=== PATIENT | female | born 1955 | race Caucasian/White ===

== ENCOUNTER 2016-11-02 05:40 | Day surgery (SDC) | payer SELFPAY ==
[~2016-11-02] VITALS: Ht 160 cm; Wt 81.4 kg
--- NOTE | ~2016-11-02 | OR ---
PATIENT'S NAME: HUE BENITES [facility] AGE: 61 Y [address] ROOM: [place] [address] LOCATION: G3 ADMIT DATE: 11/02/2016 OR/Procedure Report DISCHARGE DATE: FAMILY PHYSICIAN: ANY MOULTON PA-C ATTENDING PHYSICIAN: DAKOTA RENDON SURGEON: Dakota Rendon MD HUMAN RESOURCE ADVISOR: DATE OF PROCEDURE: 11/02/2016 ANESTHESIOLOGIST: Javier Clements MD ANESTHESIA: General. COMPLICATIONS: None. ESTIMATED BLOOD LOSS: Minimal. PREOPERATIVE DIAGNOSES: 1. C4-5 spinal stenosis with cervical radiculopathy. 2. C5-6 severe spinal stenosis with radiculopathy. 3. C6-7 severe spinal stenosis with radiculopathy. 4. Bilateral C5, bilateral C6, and bilateral C7 foraminal stenosis with radiculopathy. POSTOPERATIVE DIAGNOSES: 1. C4-5 spinal stenosis with cervical radiculopathy. 2. C5-6 severe spinal stenosis with radiculopathy. 3. C6-7 severe spinal stenosis with radiculopathy. 4. Bilateral C5, bilateral C6, and bilateral C7 foraminal stenosis with radiculopathy. PROCEDURES PERFORMED: 1. C4-5 anterior cervical diskectomy and decompression of the spinal cord. 2. C5-6 anterior cervical diskectomy and decompression of the spinal cord. 3. C6-7 anterior cervical diskectomy and decompression of the spinal cord. 4. Bilateral C5, bilateral C6, and bilateral C7 foraminotomy and decompression for stenosis. 5. C4-5 anterior arthrodesis. 6. C5-6 anterior arthrodesis. 7. C6-7 anterior arthrodesis. 8. Insertion of structural cortical cancellous allograft spacers into C4-5, C5-6, and C6-7 disk spaces. 9. Insertion of 2 anterior cervical titanium plates across C4-5, C5-7 (system used is cloud.[employer]tr[employer] [place] Elite System). 10. Intraoperative fluoroscopy. PATIENT'S NAME: HUE BENITES [facility] AGE: 61 Y [address] ROOM: [place] [address] LOCATION: [facility] ADMIT DATE: 11/02/2016 OR/Procedure Report DISCHARGE DATE: FAMILY PHYSICIAN: ANY MOULTON PA-C ATTENDING PHYSICIAN: DAKOTA RENDON CLINICAL HISTORY: The above patient was diagnosed clinically and on imaging to have the above-mentioned diagnoses. I recommended the above-mentioned surgeries to try to relieve her symptoms and improve her functioning. The patient was brought in for the operation. DESCRIPTION OF PROCEDURE: The patient was seen in the preoperative care unit, and the correct site was marked. Then, she was transferred to the main operating theater, was given general anesthetic, and underwent endotracheal intubation without complications. Preoperative antibiotics and steroids were given. Calf compressors and Ventura catheter were used throughout the procedure. The patient was positioned supine on the table, and all her joints and bony prominences were securely padded. The patient's neck was positioned on a gel-padded beanbag in mild extension. Shoulders were taped away with tape. I then marked a vertical incision on the right side of the neck starting at C4-5 level down to C6-7 level. Surgical site was prepped and draped. The proposed skin incision was infiltrated with 0.25% Marcaine with epinephrine. Skin was sharply opened down to the subplatysmal plane. Then, I dissected through the middle cervical fascia, down to the prevertebral fascia which was coagulated and incised. The correct levels were confirmed using intraoperative fluoroscopy. The longus colli muscles were then elevated bilaterally from C4 down to C7. A self-retaining retractor was inserted. I started by performing the diskectomy at C6-7 level. Distracting pins were inserted into C6 and C7 vertebrae, and gentle distraction was applied. Then, the diskectomy was performed using different sizes curettes and pituitary rongeurs. I got down to the posterior aspect of the disk, and as expected, there were large posterior projecting osteophytes. Those osteophytes were removed using Kerrison rongeur. On the right side, there was a moderate-sized disk fragment that was causing severe right C7 foraminal stenosis. That fragment was removed. Then, I performed bilateral C7 foraminotomy without complications. I was satisfied with that. Then, I proceeded to perform the diskectomies at C5-6 and C4-5 levels. The diskectomy at those 2 levels was performed in the same fashion as C6-C7 level. Distracting pins were inserted, and gentle distraction was applied. Then, formal diskectomy was done at C4-5 and C5-6 levels using different sizes curettes and pituitary rongeurs. I got down to the posterior aspect of the disk, and as expected, there were large posterior projecting osteophytes causing moderate to severe spinal stenosis. Those osteophytes were removed, and the thecal sac/spinal cord was decompressed. Then, I performed bilateral C5 and bilateral C6 foraminotomy without complications. PATIENT'S NAME: HUE BENITES [facility] AGE: 61 Y [address] ROOM: [address] [address] LOCATION: [facility] ADMIT DATE: 11/02/2016 OR/Procedure Report DISCHARGE DATE: FAMILY PHYSICIAN: ANY MOULTON PA-C ATTENDING PHYSICIAN: DAKOTA RENDON Then, I proceeded to insert structural cortical cancellous allograft spacers. Those were inserted into C4-5, C5-6, and C6-7 levels. Distraction was released. Then, I inserted 2 anterior cervical titanium plates. The first one was a 19 mm plate inserted across C4-5 disk, and that was anchored to C4 and C5 with 14 x 4 mm self-tapping screws. Then, I inserted a second plate across C5 to C7. That plate was anchored to C5, C6, and C7 vertebrae with 14 x 4 mm self-tapping screws. The plate was finally locked. Hemostasis was achieved. Final x-ray was performed, and that showed satisfactory decompression and placement of the hardware. Then, I proceeded to hemostasis and closure. The wound was copiously irrigated with bacitracin-containing irrigation. Any bleeding from the tissue was controlled with a bipolar. Then, the wound was closed in layers with 2-0 Vicryl to the platysma, 2-0 Vicryl to the subcutaneous tissue, and noe for the skin. Sterile dressing was applied. At the end of the operation, the instrument and sponge counts were correct. The patient tolerated the operation without complications. MD GONZALO GUTIÉRREZ/sanchez /[id number] CC: Any Moulton PA-C d: 11/02/16 1849 t: 11/04/162043, OPERATIVE SUMMARY
--- NOTE | ~2016-11-02 | DS ---
PATIENT'S NAME: HUE BENITES [facility] AGE: 61 Y [address] ROOM: [id number] [place], [place] [address] LOCATION: G3 ADMIT DATE: 11/02/2016 Discharge Summary DISCHARGE DATE: 11/03/2016 FAMILY PHYSICIAN: Srinivas Rubio PA-C ATTENDING PHYSICIAN: Dakota Rendon ADMISSION MAIN DIAGNOSES: 1. C4-5, C5-6, C6-7 severe spinal stenosis with radiculopathy. 2. Bilateral C5, bilateral C6, bilateral C7 foraminal stenosis with radiculopathy. DISCHARGE MAIN DIAGNOSES: 1. C4-5, C5-6, C6-7 severe spinal stenosis with radiculopathy. 2. Bilateral C5, bilateral C6, bilateral C7 foraminal stenosis with radiculopathy. PROCEDURES DURING ADMISSION: 1. C4-5, C5-6, C6-7 anterior cervical diskectomy and instrumented fusion. 2. Bilateral C5, C6, and C7 foraminotomy and decompression. COMPLICATIONS DURING ADMISSION: None. DISCHARGE INSTRUCTIONS AND FOLLOWUP APPOINTMENTS: 1. Myself on November 15, 2016, for staple removal. 2. [place] collar when mobilizing, soft neck collar when in bed. 3. Call my office for any concerns regarding the wound healing or for any new neurologic symptoms. 4. No heavy lifting, no neck twisting. MEDICATIONS ON DISCHARGE: 1. Resume all pre-admission medications. 2. Dexamethasone 3 mg p.o. b.i.d. for 2 days, then 2 mg p.o. b.i.d. for 2 days, then 2 mg p.o. once daily for 2 days, then stop. 3. Flexeril 10 mg p.o. every 8 hours p.r.n. 4. Resume Excedrin on November 10, 2016. CLINICAL HISTORY: The patient was admitted electively to the hospital for the above-mentioned surgery. She underwent an unremarkable operation. Postoperatively, she did very well. Her preoperative right arm radicular pain completely resolved after the surgery. She mobilized well without any assistance. She tolerated oral intake very well. She had no new neurologic deficits. On the day of discharge, the patient was examined. She continued to do well. The wound was healing very well. She was mobilizing without any assistance. PATIENT'S NAME: HUE BENITES [facility] AGE: 61 Y [address] ROOM: [address] [address] LOCATION: G3 ADMIT DATE: 11/02/2016 Discharge Summary DISCHARGE DATE: 11/03/2016 FAMILY PHYSICIAN: Srinivas Rubio PA-C ATTENDING PHYSICIAN: Dakota Rendon I reviewed the discharge instructions with the patient and based on that, she was sent home. MD GONZALO GUTIÉRREZ/sanchez /[id number] CC: Srinivas Rubio PA-C d: 11/03/1605 t: 11/04/16 2046, DISCHARGE SUMMARY
[~2016-11-02 05:40] MED LIST: ESTROVEN ENERG1 EACH PO; EXCEDRIN MIGRA1 EACH PO; IBUPROFEN200 M1 PO; PRILOSEC10 MG PO; TYLENOL EXTRA500 MG PO
--- NOTE | 2016-11-02 17:42 | NUR ---
Significant Event: Received from PACU at 1220. 4th hourly at 1900. Oxcodone IR x2 last at 1619. Neck dressing dry and intact. RT hand grasp slightly weaker then lt hand grasp. Soft collar on when in bed. Ridged collar when OOB. Voiding without difficulty. Up to commode/chair one assist. Follow up:
--- NOTE | 2016-11-03 04:19 | NUR ---
Significant Event: A/O X 3, IV FLUIDS INFUSING, TAKES FLUIDS, NO NAUSEA, C/O NECK SORENESS AND SORE THROAT DISCOMFORT. HURTS TO SWALLOW, NO PROBLEM SWALLOWING. SOFT COLLAR ON IN BED AND RIGID COLLAR ON WHEN OUT OF BED. AMBULATED TO COMMODE/BR VOIDS GOOD AMOUNTS. AMBULATED IN HALLS WITH GAITBELT AND ONE ASSIST, GOOD TOLERANCE. BILATATERAL CALF PNEUMATICS ON. DENIES NUMBNESS OR TINGLING TO UPPER OR LOWER EXTREMITIES. MOVES EXTREMITIES WELL. HAD ROXYCODONE 5MG TAB THIS SHIFT FOR PAIN X 2 LAST AT O251.HAD ATB THERAPY THIS SHIFT. Follow up:
--- NOTE | 2016-11-03 08:10 | NUR ---
Introduced self/role to patient and her Jose. They lives in [place]. She has lined up 24 hour help thru family and friends. She has insurance but her insurance will not cover this surgery so she is aware she is private pay but was to fill out a financial assistance form. Gave her the form and explained how to fill it out. They had no other needs. Wrote my name on the marker board, will continue to follow. Should be going home today.
[2016-11-03] MEDS ORDERED: "\\\"PREP SPRAY\\\"-TIN4 OZ" ×2 (11:03→11:06)
[2016-11-03] MEDS ORDERED: DECADRON1 MG PO (11:11)
[2016-11-03] MEDS ORDERED: FLEXERIL10 MG PO (11:14)
--- NOTE | 2016-11-03 12:40 | NUR ---
D: PATIENT ALERT AND ORIENTED X3. CSM ASSESSMENTS WNL TO BILATERAL UPPER AND LOWER EXTREMITIES. R) ANTERIOR NECK DRESSING C/D/I. RIGID COLLAR IN PLACE. PAIN WELL CONTROLLED WITH ROXICODONE 1 TAB GIVEN AT 1218. AMBULATES AD ALLY, UP TO CHAIR. BILATERAL KNEE HIGH REDD HOSE AND CALF PUMPS ON. VSS, AFEBRILE. DISCHARGE INSTRUCTIONS REVIEWED WITH PATIENT AND , VERBALIZES UNDERSTANDING. PATIENT DISMISSSED TO HOME, ACCOMPANIED BY . ASSISTED TO VEHICLE VIA W/C AND TRANSPORT ASSISTANCE. DISMISSED WITH PERSONAL BELONGINGS.
== END 2016-11-03 12:40 | disposition disaster alternative care site (69) ==
LOC: G3N 05:40 → GSDC 05:40 → G3N 12:09 → GSDC 15:00
PROC: 0RG20K0 Fusion of 2 or more Cervical Vertebral Joints with Nonautologous Tissue Substitute, Anterior Approach, Anterior Column, Open Approach (ICD-10-PCS; principal; 2016-11-02)
PROC: 0RB30ZZ Excision of Cervical Vertebral Disc, Open Approach (ICD-10-PCS; 2016-11-02)
PROC: 0RG20J0 Fusion of 2 or more Cervical Vertebral Joints with Synthetic Substitute, Anterior Approach, Anterior Column, Open Approach (ICD-10-PCS; 2016-11-02)
DX: M48.02 Spinal stenosis, cervical region (principal); M54.12 Radiculopathy, cervical region; M99.81 Other biomechanical lesions of cervical region; K21.9 Gastro-esophageal reflux disease without esophagitis; M17.9 Osteoarthritis of knee, unspecified; F32.9 Major depressive disorder, single episode, unspecified; E03.9 Hypothyroidism, unspecified; Z90.49 Acquired absence of other specified parts of digestive tract; Z90.710 Acquired absence of both cervix and uterus
CPT/HCPCS: C1713; J1030; J1100; J2001; J2405; J3010; J3360; J7030; L0174